=== PATIENT | female | born 1970 | race American Indian/Alaskan Native ===

== ENCOUNTER 2019-01-27 11:19 | Outpatient (CLI) | payer OTHER ==
--- NOTE | 2019-01-27 12:49 | Mammography Report ---
Bilateral mammogram: No previous studies available. CAD study utilized. Findings: Heterogeneous breast parenchyma bilaterally. No microcalcification. Normal axilla. 3 mm focal asymmetry outer mid right breast and 4 mm asymmetry outer anterior left breast. Impression: Focal asymmetry right and left breast. Recommend spot compression and if necessary sonographic examination. BI-RADS CATEGORY: 0 = Needs additional imaging evaluation ACR BI-RADS MAMMOGRAPHIC CODES: 0 = Needs additional imaging evaluation; 1 = Negative; 2 = Benign; 3 = Probably benign; 4 = Suspicious; 5 = Malignant; 6 = Known biopsy-proven malignancy COMMENT: 1. Dense breast tissue, i.e., adenosis, fibrocystic changes, etc., may obscure an underlying neoplasm. 2. Approximately 10% of cancers are not detected with mammography. 3. A negative mammography report should not delay biopsy if a clinically suspicious mass is present. COMMENT: Patient follow-up letters are generated in [employer].
== END 2019-01-27 11:20 | disposition home or self-care (01) ==
LOC: MAMMO 11:19
PROVIDERS: ATTEND Internal Medicine
DX: Z12.31 Encounter for screening mammogram for malignant neoplasm of breast (principal)
CPT/HCPCS: 77067

== ENCOUNTER 2019-02-03 12:50 | Outpatient (CLI) | payer OTHER ==
--- NOTE | 2019-02-03 13:49 | Mammography Report ---
BILATERAL DIGITAL DIAGNOSTIC MAMMOGRAM : 02/03/19 12:50:00 CLINICAL: Recalled for bilateral asymmetries. COMPARISON:01/27/19 screening FINDINGS: Bilateral additional mammographic views were performed and are negative. IMPRESSION: Negative Mammogram. BI-RADS CATEGORY: 1 -- Negative RECOMMENDATION: Routine mammographic screening in one year. ACR BI-RADS MAMMOGRAPHIC CODES: 0 = Needs additional imaging evaluation; 1 = Negative; 2 = Benign; 3 = Probably benign; 4 = Suspicious; 5 = Malignant; 6 = Known biopsy-proven malignancy COMMENT: 1. Dense breast tissue, i.e., adenosis, fibrocystic changes, etc., may obscure an underlying neoplasm. 2. Approximately 10% of cancers are not detected with mammography. 3. A negative mammography report should not delay biopsy if a clinically suspicious mass is present. COMMENT: Patient follow-up letters are generated via our [employer] application.
== END 2019-02-03 12:51 | disposition home or self-care (01) ==
LOC: MAMMO 12:50
PROVIDERS: ATTEND Internal Medicine
DX: R92.8 Other abnormal and inconclusive findings on diagnostic imaging of breast (principal)
CPT/HCPCS: 77066

== ENCOUNTER 2019-07-20 12:23 | Day surgery (SDC) | payer OTHER ==
[~2019-07-20 12:23] MED LIST: XYLOCAINE MPF 2% ONE
[2019-07-20] MEDS ORDERED: NACL 0.9% 1000 ML 1,000 ML IV SCH (13:00)
[2019-07-20] MEDS ORDERED: DIPRIVAN 10 MG/ML IV ONE (14:01)
--- NOTE | 2019-07-20 14:27 | Operative Report ---
Operative Report Operative Report: Procedure: Colonoscopy with hot biopsy polypectomy. Attending physician: Carlos Prasad MD Axle Turner: Carlos Prasad MD Indication: Patient is a 49-year-old female who presents for colonoscopy for colorectal cancer screening. . A colonoscopy is now done to evaluate patient so that treatment may be directed based on the findings. Consent: Informed consent was obtained after advising the patient and family regarding nature of this procedure, its indications, potential benefits as well as possible complications including but not limited to bleeding perforation and adverse reaction to medication, infection as well as other cardiopulmonary complications. An informed written and verbal consent was then obtained after due opportunity was provided for questions and answers. Monitoring: Patient was monitored continuously with pulse oximetry and electrocardiographic recordings as well as blood pressure recordings. Vital signs remained stable throughout this procedure with no untoward events. Preoperative assessment: Patient was assessed immediately prior to this procedure for capacity to tolerate monitored anesthesia care and moderate sedation as well as general anesthesia. Patient's ASA classification is 2, Mallampati class is 2, Hyomental distance is 3. Instrument: Olympus video colonoscope Medications: Propofol given intravenously in divided doses. For details please refer to anesthesia records. Description of procedure: Patient was placed in the left lateral decubitus position after achieving sedation, a digital rectal examination was performed following which the colonoscope was introduced into the anal verge and advanced to the cecum which was identified by the ileocecal valve, the appendiceal orifice, as well as by the cecal strap and direct transillumination. The colonoscope was subsequently withdrawn with careful inspection of all mucosal surfaces. Patient tolerated this procedure well and was subsequently taken to the recovery room. The following findings were noted. Findings: The patient had densely adherent thick liquid stool in various sections of the colon. In the distal ascending colon, patient had a flat polyp measuring approximately 5 mm. This was removed by hot biopsy polypectomy and retrieved. The rest of the colon to the cecum was normal except for densely adherent stool. On the retroflex view at the anal verge, patient had internal hemorrhoids. Impression: Ascending colon polyp status post hot biopsy polypectomy Retained stool Internal hemorrhoids. Plan: Follow pathology report. High-fiber diet.May benefit from hemorrhoid in the near future. Consider repeat colonoscopy in 1 year because of significant retained stool.
--- NOTE | 2019-07-20 14:28 | Discharge Summary ---
Short Stay Discharge Plan Activity: advance as tolerated Weight Bearing Status: Weight Bear as Tolerated Diet: regular Follow up with: JT JONES MD [Primary Care Provider] - 7 Days
[2019-07-20 15:08] VITALS: BP 136/72
--- NOTE | 2019-07-20 18:17 | Anesthesia Day of Surgery ---
Anesthesia Day of Surgery - Day of Surgery Patient Examined: Yes Patient H&P Reviewed: Yes Patient is NPO: Yes Beta Blockers: No Cardiac Clearance: No Pulmonary Clearance: No [employer]'s Test: N/A
--- NOTE | 2019-07-20 18:18 | Anesthesia Consultation ---
Anesthesia Consult and Med Hx - Airway ROM Head & Neck: Adequate Mental/Hyoid Distance: Adequate Mallampati Class: Class II Intubation Access Assessment: Good - Pulmonary Exam CTA: Yes - Pre-Operative Health Status ASA Pre-Surgery Classification: ASA2 Proposed Anesthetic Plan: General, MAC - Hematic Hx Anemia: Yes (h/0 anemia)
--- NOTE | 2019-07-20 18:19 | Post Anesthesia Evaluation ---
- Post Anesthesia Evaluation Patient Participated: Yes Airway Patent: Yes Stable Respiratory Function: Yes Nausea/Vomiting: No Temp > 96.8F: Yes Pain Manageable: Yes Adequeate Hydration: Yes Anesthesia Complications: No Block Receding Appropriately: Not Applicable Patient on Ventilator: No
== END 2019-07-20 12:24 | disposition home or self-care (01) ==
LOC: GIO 12:23
PROVIDERS: ATTEND Internal Medicine Gastroenterology
DX: Z12.11 Encounter for screening for malignant neoplasm of colon (principal); K63.5 Polyp of colon; K64.8 Other hemorrhoids; Z88.5 Allergy status to narcotic agent; Z79.899 Other long term (current) drug therapy; Z90.710 Acquired absence of both cervix and uterus; Z98.890 Other specified postprocedural states; Z86.2 Personal history of diseases of the blood and blood-forming organs and certain disorders involving the immune mechanism
CPT/HCPCS: 45384; 88305; J2704; J7030

== ENCOUNTER 2020-02-01 14:43 | Outpatient (CLI) | payer OTHER ==
--- NOTE | 2020-02-02 11:26 | Mammography Report ---
DIGITAL SCREENING MAMMOGRAM WITH CAD, 02/01/2020 INDICATION: Routine screening mammography. TECHNIQUE: Digital bilateral 2D mammography was obtained in the craniocaudal and mediolateral obliq ue projections. This examination was interpreted with the benefit of Computer-Aided Detection analysi s. COMPARISON: 01/27/2019 FINDINGS: Breast Density: The breasts are heterogeneously dense, which may obscure small masses. There is no evidence of dominant mass, suspicious calcifications or architectural distortion in eithe r breast. IMPRESSION: No mammographic evidence of malignancy. Follow up recommendation: Routine yearly BI-RADS Category 1: Negative. A "normal" or negative report should not discourage follow up or biopsy of a clinically significant f inding. A written summary of these findings will be mailed to the patient. The patient will be entered into a mammography reporting system which will generate a reminder letter for the patient's next appointmen t at the appropriate interval. The [employer] recommends yearly mammograms starting at age 40 and continuing as l gerson as a woman is in good health. Breast MRI is recommended for women with an approximate 20-25% or greater lifetime risk of breast cancer, including women with a strong family history of breast or ova echo cancer or who have been treated for Hodgkin's disease. Signer Name: Mike Valdes MD Signed: 02/02/2020 11:22 AM Workstation Name: [id number]
== END 2020-02-01 14:44 | disposition home or self-care (01) ==
LOC: MAMMO 14:43
PROVIDERS: ATTEND Internal Medicine
DX: Z12.31 Encounter for screening mammogram for malignant neoplasm of breast (principal)
CPT/HCPCS: 77067

== ENCOUNTER 2022-02-26 08:24 | Outpatient (CLI) | payer OTHER ==
--- NOTE | 2022-02-26 15:26 | Mammography Report ---
DIGITAL SCREENING MAMMOGRAM WITH CAD, 02/26/2022 CLINICAL INFORMATION / INDICATION: Routine screening TECHNIQUE: Digital bilateral 2D mammography was obtained in the craniocaudal and mediolateral obliqu e projections. This examination was interpreted with the benefit of Computer-Aided Detection analysis . COMPARISON: 02/01/2020 FINDINGS: Breast Density: The breasts are heterogeneously dense, which may obscure small masses. No dominant mass, suspicious calcifications, or architectural distortion in either breast. IMPRESSION: No mammographic evidence of malignancy. Follow up recommendation: Routine yearly BI-RADS Category 1: NEGATIVE A "normal" or negative report should not discourage follow up or biopsy of a clinically significant f inding. A written summary of these findings will be mailed to the patient. The patient will be entered into a mammography reporting system which will generate a reminder letter for the patient's next appointmen t at the appropriate interval. The [employer] recommends yearly mammograms starting at age 40 and continuing as l gerson as a woman is in good health. Breast MRI is recommended for women with an approximate 20-25% or greater lifetime risk of breast cancer, including women with a strong family history of breast or ova echo cancer or who have been treated for Hodgkin's disease. Signer Name: Richard Carmona MD Signed: 02/26/2022 3:21 PM Workstation Name: [id number]
== END 2022-02-26 08:25 | disposition home or self-care (01) ==
LOC: MAMMO 08:24
PROVIDERS: ATTEND Internal Medicine
DX: Z12.31 Encounter for screening mammogram for malignant neoplasm of breast (principal)
CPT/HCPCS: 77067